=== PATIENT | female | born 1980 | race Caucasian/White ===

== ENCOUNTER 2022-07-19 12:35 | Outpatient (CLI) | payer BC, SELFPAY ==
[2022-07-19 16:24] LABS: Vitamin D 25 Hydroxy* 27 ng/mL (30-80)
== END 2022-07-19 12:36 | disposition home or self-care (01) ==
PROVIDERS: Visit Provider Registered Nurse
DX: Z01.419 Encounter for gynecological examination (general) (routine) without abnormal findings (principal); R53.83 Other fatigue
CPT/HCPCS: 82306; 84443

== ENCOUNTER 2022-10-12 15:08 | Outpatient (CLI) | payer BC, SELFPAY ==
--- NOTE | 2022-10-12 15:20 | CRLHL7_ITS ---
For Patients: As a result of the Century Cures Act, medical imaging exams and procedure reports are released immediately into your electronic medical record. You may view this report before your referring provider. If you have questions, please contact your health care provider. BILATERAL SCREENING MAMMOGRAM WITH COMPUTER-AIDED DETECTION TECHNIQUE: CC and MLO views were obtained. These mammographic images have been obtained using full-field digital technique. These mammographic images were interpreted with the benefit of computer-aided detection. COMPARISON FILM: None. This is a baseline study. FINDINGS: The breasts are extremely dense, which lowers the sensitivity of mammography. IMPRESSION: There is no radiographic evidence for malignancy. ASSESSMENT: BI-RADS Category 1: Negative RECOMMENDATION: Routine screening mammogram in 1 year. A lay language report of this examination will be provided to the patient. TEE CARTER M.D. Diagnostic Radiologist [email or web address] Transcribed: 10/13/2022, 5:[address]/Dictated by: Tee Carter MD @ 10/13/2022 8:52:00 AM (Electronically Signed)
== END 2022-10-12 15:09 | disposition home or self-care (01) ==
PROVIDERS: Visit Provider Registered Nurse
DX: Z12.31 Encounter for screening mammogram for malignant neoplasm of breast (principal); R92.2 Inconclusive mammogram
CPT/HCPCS: 77067

== ENCOUNTER 2023-06-26 16:00 | Outpatient (RCR) | payer BC, SELFPAY | END 2023-10-24 23:59 | disposition home or self-care (01) | PROVIDERS: PCP Chiropractor; Visit Provider Chiropractor | DX: M54.13 Radiculopathy, cervicothoracic region (principal); M89.8X1 Other specified disorders of bone, shoulder; R29.898 Other symptoms and signs involving the musculoskeletal system; Z51.89 Encounter for other specified aftercare | CPT/HCPCS: 97140; 97161 ==

== ENCOUNTER 2024-04-01 08:13 | Outpatient (CLI) | payer BC, SELFPAY | END 2024-04-01 08:14 | disposition home or self-care (01) | LOC: NFLDREF 04-05 00:27 | PROVIDERS: Referring Provider Chiropractor; Visit Provider Emergency Medicine | DX: Z00.00 Encounter for general adult medical examination without abnormal findings (principal); Z13.6 Encounter for screening for cardiovascular disorders | CPT/HCPCS: 80048; 80061 ==

== ENCOUNTER 2025-02-17 08:15 | Outpatient (RCR) | payer OTHER, SELFPAY | END 2025-06-17 23:59 | disposition home or self-care (01) | PROVIDERS: Visit Provider Chiropractor | DX: M25.512 Pain in left shoulder (principal); M54.6 Pain in thoracic spine; M79.18 Myalgia, other site; Z51.89 Encounter for other specified aftercare | CPT/HCPCS: 97110; 97140; 97161 ==